=== PATIENT | male | born 1965 | race Hispanic/Latino ===

== ENCOUNTER 2018-02-24 16:14 | Emergency (ER) | payer BC ==
[2018-02-24 16:37] VITALS: RESP 16; O2SAT 100
[2018-02-24] MEDS ORDERED: Sodium Chloride 0.9% 1,000 ML IV STA (17:23)
[2018-02-24 17:57] LABS: BASO # 0.1 K/uL (0.0-0.2); BASO % 0.6 % (0.0-2.0); EOS # 0.3 K/uL (0.0-0.7); EOS % 3.1 % (0.0-4.0); HEMOGLOBIN 14.8 g/dL (12.0-18.0); LYMPH # 1.1 K/uL (1.0-4.3); MEAN CELL VOLUME 89.6 fl (80.0-94.0); MEAN CORPUSCULAR HEMOGLOBIN 30.3 pg (27.0-31.0); MEAN CORPUSCULAR HGB CONC 33.8 g/dL (33.0-37.0); MEAN PLATELET VOLUME 9.5 fl (7.2-11.7); MONO # 0.8 K/uL (0.0-0.8); MONO % 9.2 % (0.0-10.0); NEUT # 6.5 K/uL (1.8-7.0); NEUT % 74.1 % (50.0-75.0); RBC 4.88 Mil/uL (4.40-5.90); RED CELL DISTRIBUTION WIDTH 13.9 % (11.5-14.5); WHITE BLOOD COUNT 8.8 K/uL (4.8-10.8)
[2018-02-24 18:03] LABS: ALB/GLOB RATIO 1.1 (1.0-2.1); ALT/SGPT 56 U/L (21-72); AST/SGOT 35 U/L (17-59); BLOOD UREA NITROGEN 27 mg/dl (9-20); CALCIUM 8.9 mg/dL (8.4-10.2); GFR AFRICAN-AMERICAN > 60; GFR NON-AFRICAN AMERICAN > 60
--- NOTE | 2018-02-24 18:47 | ED PDOC ---
HPI: Wound Care - HPI Time Seen by Provider: 02/24/18 16:48 Chief Complaint (Nursing): Wound Check Chief Complaint (Provider): Wound Check History Per: Patient Exam Limitations: no limitations Onset/Duration Of Symptoms: Days (x3) Current Symptoms Are (Timing): Still Present Additional Complaint(s): 52 y/o male with a pmhx of HIV, who presents to the ED for evaluation of an infection to the left anterior lower leg x3 days. Patient states he was seen by PMD 2 days ago and given Bactrim. He states the redness is worse and he now has red spots extending down his leg. Denies fever or chills. Patient reports he is taking his Bactrim as prescribed. PMD: None provided Past Medical History Reviewed: Historical Data, Nursing Documentation, Vital Signs Vital Signs: Last Vital Signs Temp 97.9 F 02/24/18 16:33 Pulse 82 02/24/18 16:33 Resp 16 02/24/18 16:33 BP 146/89 02/24/18 16:33 Pulse Ox 100 02/24/18 16:33 - Medical History PMH: HIV - Surgical History Surgical History: No Surg Hx - Family History Family History: States: Unknown Family Hx - Home Medications Home Medications: Ambulatory Orders Medication Instructions Recorded Clindamycin [Cleocin] 300 mg PO QID #40 cap 02/24/18 - Allergies Allergies/Adverse Reactions: Allergies Allergy/AdvReac Type Severity Reaction Status Date / Time No Known Allergies Allergy Verified 02/24/18 16:33 Review of Systems ROS Statement: Except As Marked, All Systems Reviewed And Found Negative Constitutional: Negative for: Fever, Chills Skin: Positive for: Lesions (3cm indurated abscess to left lower leg) Physical Exam - Reviewed Nursing Documentation Reviewed: Yes Vital Signs Reviewed: Yes - Physical Exam Appears: Positive for: Non-toxic, No Acute Distress Head Exam: Positive for: ATRAUMATIC, NORMAL INSPECTION, NORMOCEPHALIC Skin: Positive for: Normal Color, Warm, Dry Eye Exam: Positive for: Normal appearance Neck: Positive for: Normal, Painless ROM Extremity: Positive for: Tenderness (left lower leg), Other (3 cm indurated abscess to left lower leg with approximately 7 cm of surrounding erythema, erythematous papules inferior to the area, area tender to palpation) Neurologic/Psych: Positive for: Alert, Oriented - Laboratory Results Result Diagrams: 02/24/18 17:30 02/24/18 17:30 - ECG O2 Sat by Pulse Oximetry: 100 (RA) Pulse Ox Interpretation: Normal Medical Decision Making Medical Decision Makin:22 Plan: --CMP --CBC --1LNS --Blood culture --Reevaluation Labs normal. Discussed f/u with pmd and return for fever or worsening rash/ redness. Warm compresses. Scribe Attestation: Documented by Salvatore Brown, acting as a scribe for Margo Pulido PA-C. Provider Scribe Attestation: All medical record entries made by the Scribe were at my direction and personally dictated by me. I have reviewed the chart and agree that the record accurately reflects my personal performance of the history, physical exam, medical decision making, and the department course for this patient. I have also personally directed, reviewed, and agree with the discharge instructions and disposition. Disposition - Clinical Impression Clinical Impression: Abscess - Patient ED Disposition Is Patient to be Admitted: No Counseled Patient/Family Regarding: Diagnosis, Need For Followup, Rx Given - Disposition Disposition: Routine/Home Disposition Time: 21:01 Condition: STABLE Additional Instructions: Warm compress. Prescriptions: Clindamycin [Cleocin] 300 mg PO QID #40 cap Instructions: Skin Abscess Forms: [employer] (Lebanese)
[2018-02-24] MEDS ORDERED: Clindamycin 600mg/50ml NS 600 MG/50 ML BAG IVPB ONE (20:06)
[2018-02-24 21:02] VITALS: BP 132/78; PULSE 89; TEMP 98.9
== END 2018-02-24 21:03 | disposition home or self-care (01) ==
LOC: H.ER 16:14
DX: L02.416 Cutaneous abscess of left lower limb (principal); B20 Human immunodeficiency virus [HIV] disease
CPT/HCPCS: 80053; 85025; 87040; 96365; 99284; J7040